=== PATIENT | female | born 2000 | race Caucasian/White ===

== ENCOUNTER 2018-11-23 13:43 | Outpatient (CLI) | payer BC ==
[~2018-11-23 13:43] MED LIST: Iopamidol 370 76% 100 ML VIAL ONE
--- NOTE | 2018-11-23 15:38 | CT ---
CT ABDOMEN AND PELVIS WITH AND WITHOUT CONTRAST: Date: 11/23/18 HISTORY: Ovarian cysts. COMPARISON: None. FINDINGS: Lung bases are clear. No pericardial effusion. On the noncontrast portion of the examination, the jamil g bases are clear. No pericardial effusion. There is a 2.0 mm calculus at the inferior pole of the right kidney. There is an adjacent 1.0 mm calc ulus at the inferior pole of the right kidney. No left-sided renal calculi are present. There is no h ydroureteronephrosis. There is small volume free fluid in the pelvis, likely physiologic. Multiple follicles are seen of saulo th ovaries. Mass evaluation is limited on CT examination, although no definite mass is appreciated. On the delayed phase of contrast, there are no filling defects within the renal pelvises, ureters, no r the urinary bladder. No osseous abnormality. The liver, gallbladder, spleen, and pancreas are unremarkable. The adrenal glands are normal. IMPRESSION: Normal bilateral ovarian follicles and trace free fluid in the pelvis, likely physiologic. No definit e mass is seen on the CT examination, although CT is a limited evaluation for a mass. MRI of pelvis w ith and without contrast has the greatest sensitivity. POS: [facility]
== END 2018-11-23 13:44 | disposition home or self-care (01) ==
LOC: BICCT 13:43
PROVIDERS: ATTEND Obstetrics & Gynecology
DX: N83.209 Unspecified ovarian cyst, unspecified side (principal); R10.2 Pelvic and perineal pain
CPT/HCPCS: 74178; Q9967